=== PATIENT | male | born 1940 | race American Indian/Alaskan Native ===

== ENCOUNTER 2017-02-16 10:25 | Outpatient (CLI) | payer MEDICARE ==
[2017-02-16 10:58] LABS: Basophils % (Auto) 0.7 % (0.0-1.8); Eosinophils % (Auto) 1.6 % (0.0-4.3); Hematocrit 26.8 % (35.5-45.6); Mean Corpuscular HGB Conc 34 % (32-34); Mean Corpuscular Hemoglobin 30 pg (28-32); Mean Corpuscular Volume 90 fl (84-94); Platelet Count 163 K/mm3 (140-440); Red Blood Count 2.96 M/mm3 (3.65-5.03); Red Cell Distribution Width 18.6 % (13.2-15.2); White Blood Count 2.6 K/mm3 (4.5-11.0)
== END 2017-02-16 10:26 | disposition home or self-care (01) ==
LOC: LABHHL 10:25
PROVIDERS: ATTEND Internal Medicine
DX: I10 Essential (primary) hypertension (principal); D50.9 Iron deficiency anemia, unspecified; E78.2 Mixed hyperlipidemia; N40.0 Benign prostatic hyperplasia without lower urinary tract symptoms; M81.0 Age-related osteoporosis without current pathological fracture; Z79.899 Other long term (current) drug therapy
CPT/HCPCS: 82607; 83036; 85025

== ENCOUNTER 2017-02-22 10:57 | Outpatient (CLI) | payer MEDICARE ==
--- NOTE | 2017-02-22 12:12 | XRay Report ---
Unilateral left ribs: History: Pain left costal area. Findings: No lytic or blastic lesion. No fracture. Impression: No evidence of acute fracture left ribs.
--- NOTE | 2017-02-22 12:14 | XRay Report ---
Abdominal series: History: Pain left costal area. Findings: No acute lung changes. Minimal scarring lower lobes. No free intraperitoneal air. No bowel distention or wall thickening. Stool in colon. No radiopaque calculus or abnormal calcification. Impression: No acute lung changes. No acute abdominal findings. Oral
== END 2017-02-22 10:58 | disposition home or self-care (01) ==
LOC: XRAY 10:57
PROVIDERS: ATTEND Internal Medicine
DX: J98.4 Other disorders of lung (principal); R07.82 Intercostal pain
CPT/HCPCS: 74022

== ENCOUNTER 2017-03-02 08:42 | Outpatient (CLI) | payer MEDICARE ==
--- NOTE | 2017-03-02 13:34 | Fluoroscopy Report ---
UGI INDICATION: Pain left costal area. Nosebleeds. COMPARISON: None similar. FINDINGS: Upper GI exam performed. Patient swallowed thick and thin barium without any difficulty and tolerated effervescent granules well. [employer] radiograph demonstrates nonobstructive bowel gas pattern. Right hemidiaphragm may be slightly elevated. Osteopenia. Esophagus is normal in course and caliber. Normal peristalsis and mucosal pattern, to the extent assessed. No demonstrable hiatal hernia. Mild gastroesophageal reflux. Normal gastric contours without evidence of peptic ulcer disease. Normal duodenal bulb and appearance of the C-loop as well. CONCLUSION: Mild gastroesophageal reflux. Otherwise unremarkable exam. Thank you for the opportunity to participate in this patient's care.
== END 2017-03-02 08:43 | disposition home or self-care (01) ==
LOC: FLUORO 08:42
PROVIDERS: ATTEND Internal Medicine
DX: K21.9 Gastro-esophageal reflux disease without esophagitis (principal); R04.0 Epistaxis; R07.82 Intercostal pain; J98.6 Disorders of diaphragm; M85.80 Other specified disorders of bone density and structure, unspecified site
CPT/HCPCS: 74247

== ENCOUNTER 2017-08-15 09:56 | Outpatient (CLI) | payer MEDICARE ==
--- NOTE | 2017-08-15 11:32 | XRay Report ---
Metastatic skeletal survey. History: Pancytopenia. Findings: Images of the axial and appendicular skeleton were performed. No focal lytic or suspicious blastic lesions are identified. Extensive severe cervical spondylosis is present. There is mild anterolisthesis of L4 on 5. No compression fractures or pedicle sclerosis is present. There is mild rotoscoliosis of the upper thoracic spine. There is right lower lobe subsegmental atelectasis with location of the right hemidiaphragm and fissural thickening. Impression: No evidence of metastatic disease.
== END 2017-08-15 09:57 | disposition home or self-care (01) ==
LOC: SPVIMAG 09:56
PROVIDERS: ATTEND Internal Medicine Hematology & Oncology
DX: C90.00 Multiple myeloma not having achieved remission (principal); D61.818 Other pancytopenia; M47.892 Other spondylosis, cervical region; M41.84 Other forms of scoliosis, thoracic region; J98.11 Atelectasis; I10 Essential (primary) hypertension; D64.9 Anemia, unspecified
CPT/HCPCS: 77074

== ENCOUNTER 2022-03-06 13:24 | Emergency (ER) | payer BC, MEDICARE ==
[2022-03-06] MEDS ORDERED: SODIUM CHLORIDE 0.9% 1000 ML 1,000 ML IV ONE (14:28)
[2022-03-06] MEDS ORDERED: levETIRAcetam 1000 MG/NS 0.75% 1,000 MG/100 ML BAG IV ONE (14:28)
[2022-03-06 15:25] LABS: Basophils % (Auto) 0.2 % (0.0-1.8); Hematocrit 33.2 % (35.5-45.6); Hemoglobin 11.1 gm/dl (11.8-15.2); Lymphocytes # (Auto) 0.4 K/mm3 (1.2-5.4); Lymphocytes % (Auto) 7.7 % (13.4-35.0); Mean Corpuscular HGB Conc 33 % (32-34); Mean Corpuscular Volume 104 fl (84-94); Monocytes # (Auto) 0.3 K/mm3 (0.0-0.8); Platelet Count 164 K/mm3 (140-440); Red Cell Distribution Width 14.5 % (13.2-15.2)
[2022-03-06 15:39] LABS: Alanine Aminotransferase 34 units/L (7-56); Albumin 4.5 g/dL (3.9-5); BUN/Creatinine Ratio 21; Blood Urea Nitrogen 17 mg/dL (9-20); Calcium 9.5 mg/dL (8.4-10.2); Hemolysis Index 11
--- NOTE | 2022-03-06 16:16 | Emergency Department Report ---
ED Seizure HPI - General Chief Complaint: Seizure Stated Complaint: SEIZURE Time Seen by Provider: 03/06/22 14:19 Source: patient, EMS Mode of arrival: Stretcher Limitations: No Limitations - History of Present Illness Initial Comments: WITNESSED SEIZURE. REPORTED HISTORY OF SEIZURES , out of keppra, no head injuyr no fall Complaint: seizure -: Sudden, hour(s) Description of Episode: loss of consciousness, tonic-clonic movement Witnessed:: Yes Trauma: No Seizure History: known seizure disorder, history of non-compliance Place: street/outdoors Possible Precipitating Event: none Associated Symptoms: denies: denies other symptoms, chest pain, confusion - Related Data Home Medications Medication Instructions Recorded Confirmed Last Taken Divalproex Sodium [Depakote] 250 mg PO DAILY 06/22/17 06/22/17 06/21/17 21:30 amLODIPine 10 mg PO DAILY 06/22/17 06/22/17 06/22/17 09:30 levETIRAcetam [Keppra TAB] 750 mg PO BID 06/22/17 06/22/17 06/22/17 09:30 Previous Rx's Medication Instructions Recorded Last Taken Type Docusate Sodium [Colace CAP] 100 mg PO BID PRN #60 capsule 06/28/17 Unknown Rx Magnesium Oxide [Mag-Ox] 400 mg PO DAILY #30 tablet 06/28/17 Unknown Rx Potassium Chloride [K-Dur] 20 meq PO QDAY #7 tablet 06/28/17 Unknown Rx levETIRAcetam [Keppra TAB] 750 mg PO BID #60 03/06/22 Unknown Rx Allergies Allergy/AdvReac Type Severity Reaction Status Date / Time No Known Allergies Allergy Unverified 03/06/22 13:36 ED Review of Systems ROS: Stated complaint: SEIZURE Other details as noted in HPI Constitutional: denies: chills, fever Eyes: denies: eye pain, eye discharge, vision change ENT: denies: ear pain, throat pain Respiratory: denies: cough, shortness of breath, wheezing Cardiovascular: denies: chest pain, palpitations Endocrine: no symptoms reported Gastrointestinal: denies: abdominal pain, nausea, diarrhea Genitourinary: denies: urgency, dysuria Musculoskeletal: denies: back pain, joint swelling, arthralgia Skin: denies: rash, lesions Neurological: denies: headache, weakness, paresthesias Psychiatric: denies: anxiety, depression Hematological/Lymphatic: denies: easy bleeding, easy bruising ED Past Medical Hx - Past Medical History Hx Hypertension: Yes Hx Heart Attack/AMI: No Hx Renal Disease: Yes (acute on chronic. nephrology following) Hx Arthritis: Yes Hx Seizures: Yes (2015 one episode) Hx HIV: No - Social History Smoking Status: Never Smoker - Medications Home Medications: Home Medications Medication Instructions Recorded Confirmed Last Taken Type Divalproex Sodium [Depakote] 250 mg PO DAILY 06/22/17 06/22/17 06/21/17 21:30 History amLODIPine 10 mg PO DAILY 06/22/17 06/22/17 06/22/17 09:30 History levETIRAcetam [Keppra TAB] 750 mg PO BID 06/22/17 06/22/17 06/22/17 09:30 History Docusate Sodium [Colace CAP] 100 mg PO BID PRN #60 capsule 06/28/17 Unknown Rx Magnesium Oxide [Mag-Ox] 400 mg PO DAILY #30 tablet 06/28/17 Unknown Rx Potassium Chloride [K-Dur] 20 meq PO QDAY #7 tablet 06/28/17 Unknown Rx levETIRAcetam [Keppra TAB] 750 mg PO BID #60 03/06/22 Unknown Rx ED Physical Exam - General Limitations: No Limitations General appearance: alert, in no apparent distress - Head Head exam: Present: atraumatic, normocephalic - Eye Eye exam: Present: normal appearance - ENT ENT exam: Present: mucous membranes moist - Neck Neck exam: Present: normal inspection - Respiratory Respiratory exam: Present: normal lung sounds bilaterally. Absent: respiratory distress - Cardiovascular Cardiovascular Exam: Present: regular rate, normal rhythm. Absent: systolic mur mur, diastolic murmur, rubs, gallop - GI/Abdominal GI/Abdominal exam: Present: soft, normal bowel sounds - Rectal Rectal exam: Present: deferred - Extremities Exam Extremities exam: Present: normal inspection - Back Exam Back exam: Present: normal inspection - Neurological Exam Neurological exam: Present: alert, oriented X3 - Psychiatric Psychiatric exam: Present: normal affect, normal mood - Skin Skin exam: Present: warm, dry, intact, normal color. Absent: rash ED Course Vital Signs 03/06/22 13:24 Temperature 98.2 F Pulse Rate 100 H Respiratory 18 Rate Blood Pressure 148/80 [Left] O2 Sat by Pulse 98 Oximetry ED Medical Decision Making - Lab Data Result diagrams: 03/06/22 14:49 03/06/22 14:49 - Differential Diagnosis work up unremarkable ,alert and awake no signs f trauma refilled for [facility] Critical care attestation.: If time is entered above; I have spent that time in minutes in the direct care of this critically ill patient, excluding procedure time. ED Disposition Clinical Impression: Seizure Disposition: 01 HOME / SELF CARE / HOMELESS Is pt being admited?: No Does the pt Need Aspirin: No Condition: Stable Instructions: Epilepsy
[2022-03-06 17:24] VITALS: BP 181/86
--- NOTE | 2022-03-07 18:54 | Electrocardiograph Report ---
[facility] Test Date: 2022-03-06 Test Time: 14:25:23 Pat Name: PIPPA KRAUSE Department: Room: Gender: M Family Practice Medical Doctor: YENY : 1940 Requested By: JOON THOMAS Order Number: [id number] Reading MD: Dale Morales Measurements Intervals Russell Rate: 83 P: 64 PA: 143 QRS: -42 QRSD: 96 T: 31 QT: 417 QTc: 490 Interpretive Statements Sinus rhythm Probable left atrial enlargement Left axis deviation Probable anteroseptal infarct, old Left ventricular hypertrophy No previous ECG available for comparison Electronically Signed On 03-07-2022 18:54:15 EDT by Dale Morales
== END 2022-03-06 17:23 | disposition home or self-care (01) ==
LOC: ED 13:24
DX: R56.9 Unspecified convulsions (principal); I10 Essential (primary) hypertension; N28.9 Disorder of kidney and ureter, unspecified; M19.90 Unspecified osteoarthritis, unspecified site; Z79.899 Other long term (current) drug therapy
CPT/HCPCS: 36415; 80053; 85025; 86140; 93005; 96365; 99284; J1953; J7030; 80320; G0480